=== PATIENT | female | born 1990 | race Caucasian/White ===

== ENCOUNTER → 2023-05-08 | Outpatient (CLI) | payer SELFPAY ==
[2023-05-08 17:15] LABS: Free T3 3.2 pg/mL (2.18-3.98); T4 Free Direct 1.11 ng/dL (0.76-1.46); Thyroid Stim Hormone (TSH) 0.02 uIU/mL (0.358-3.74)
[2023-05-10 10:09] LABS: Thyroid Peroxidase AB 19 IU/mL (0-34)
== END | disposition home or self-care (01) ==
PROVIDERS: PCP Family Medicine; Referring Provider Internal Medicine Endocrinology, Diabetes & Metabolism; Visit Provider Internal Medicine Endocrinology, Diabetes & Metabolism
DX: O99.280 Endocrine, nutritional and metabolic diseases complicating pregnancy, unspecified trimester (principal); E05.90 Thyrotoxicosis, unspecified without thyrotoxic crisis or storm; Z3A.00 Weeks of gestation of pregnancy not specified
CPT/HCPCS: 36415; 84439; 84443; 84481; 86376

== ENCOUNTER → 2023-07-19 | Outpatient (CLI) | payer SELFPAY ==
--- OUTSIDE RECORDS SUMMARY | 2023-07-19 16:36 | XMS RPT_ITS | CCD ---
Author Name Unknown Address [address] [place] [address] Organization [facility] Care Team Providers Care Water Pumper Name Role Phone SMOOTH VIVEROS CNM Attending Unavailable SMOOTH VIVEROS CNM Admitting Unavailable SMOOTH VIVEROS CNM Primary Care Unavailable SMOOTH VIVEROS CNM Primary Care Unavailable SMOOTH VIVEROS CNM Attending Unavailable CHELO HARGROVE MD Consulting Unavailable SMOOTH VIVERSO CNM Admitting Unavailable PROVIDER, UNKNOWN Consulting Unavailable PROVIDER, UNKNOWN Consulting Unavailable PROVIDER, UNKNOWN Consulting Unavailable TRUONG TRAYLOR MD Admitting Unavailable TRUONG TRAYLOR MD Primary Care Unavailable TRUONG TRAYLOR MD Attending Unavailable SMOOTH VIVEROS CNM Primary Care Unavailable SMOOTH VIVEROS CNM Attending Unavailable SMOOTH VIVEROS CNM Admitting Unavailable Problems Problem Classification Problem Date Documented Da te Episodic/Chronic Other and delivery including normal (3 sources) Encounter for supervision of other normal , first trimester; Translations: [Encounter for supervision of other normal , first trimester] Onset: 04-18-2023 Episodic Other screening for suspected conditions (not mental disorders or infectious disease) (1 source) Abnormal results of thyroid function studies; Translations: [Abnormal results of thyroid function studies] Onset: 04-18-2023 Episodic Results Test Name Value Interpretation Reference Range Facil ity Encounters Encounter Date Encounter Type Care Provider Facility Start: 05-30-2023 End: 05-30-2023 ambulatory TRUONG SMALLS [facility] Start: 05-04-2023 Evaluation and manag ement of inpatient SMOOTH LOMBARDO [facility] Start: 04-18-2023 End: 04-18-2023 ambulatory SMOOTH LOMBARDO [facility] Payers Date Payer Category Payer Unknown [id number] Unknown Summary Purpose Family History No Family History Records Found Advance Directives No Advanced Directives Records Found Additional Source Comments INFORMATION SOURCE (unrecogn ized section and content) FOR RECORDS PERTAINING TO PATIENTS WHO ARE OR HAVE BEEN ENROLLED IN A CHEMICAL DEPENDENCY/SUBSTANCEABUSE PROGRAM, SOME INFORMATION MAY BE OMITTED. This clinical summary was aggregated from multiple sources. Caution should be exercised in using it in the provision of clinical care. This summary normalizes information from multiple sources, and as a consequence, information in this document may materially change the coding, format and clinical context of patient data. In addition, data may be omitted in some cases. CLINICAL DECISIONS SHOULD BE BASED ON THE PRIMARY CLINICAL RECORDS. [facility] [email or web address] [facility]. provides no warranty or guarantee of the accuracy or completeness of information in this document.
[2023-07-19 17:53] LABS: Free T3 2.3 pg/mL (2.18-3.98); Thyroid Stim Hormone (TSH) 0.14 uIU/mL (0.358-3.74)
== END | disposition home or self-care (01) ==
PROVIDERS: PCP Family Medicine; Referring Provider Internal Medicine Endocrinology, Diabetes & Metabolism; Visit Provider Internal Medicine Endocrinology, Diabetes & Metabolism
DX: O99.280 Endocrine, nutritional and metabolic diseases complicating pregnancy, unspecified trimester (principal); E05.90 Thyrotoxicosis, unspecified without thyrotoxic crisis or storm; Z3A.00 Weeks of gestation of pregnancy not specified
CPT/HCPCS: 36415; 84439; 84443; 84481

== ENCOUNTER → 2024-06-02 | Outpatient (CLI) | payer SELFPAY ==
[2024-06-02 17:45] LABS: Free T3 2.6 pg/mL (2.18-3.98); T4 Free Direct 0.96 ng/dL (0.76-1.46); Thyroid Stim Hormone (TSH) 0.243 uIU/mL (0.358-3.740)
== END | disposition home or self-care (01) ==
PROVIDERS: PCP Family Medicine; Referring Provider Internal Medicine Endocrinology, Diabetes & Metabolism; Visit Provider Internal Medicine Endocrinology, Diabetes & Metabolism
DX: E06.3 Autoimmune thyroiditis (principal)
CPT/HCPCS: 36415; 84439; 84443; 84481